=== PATIENT | female | born 1990 | race African-American/Black ===

== ENCOUNTER 2019-03-05 19:33 | Emergency (ER) | payer MEDICAID, OTHER ==
[2019-03-05] MEDS ORDERED: Ketorolac Tromethamine 30 MG/ML VIAL ONE (20:12)
== END 2019-03-05 20:30 | disposition home or self-care (01) ==
LOC: ERS 19:33
DX: M72.2 Plantar fascial fibromatosis (principal); F32.9 Major depressive disorder, single episode, unspecified
CPT/HCPCS: 96372; 99283; J1885

== ENCOUNTER 2023-07-12 11:27 | Emergency (ER) | payer OTHER ==
[2023-07-12] MEDS ORDERED: Dexamethasone 10 MG/ML VIAL ONE (11:48)
== END 2023-07-12 12:38 | disposition home or self-care (01) ==
LOC: ERS 11:27
DX: J06.9 Acute upper respiratory infection, unspecified (principal)
CPT/HCPCS: 71045; J1100

== ENCOUNTER 2023-09-10 20:01 | Emergency (ER) | payer OTHER, SELFPAY | END 2023-09-10 20:47 | disposition home or self-care (01) | LOC: ERS 20:01 | DX: H66.92 Otitis media, unspecified, left ear (principal); H73.92 Unspecified disorder of tympanic membrane, left ear | CPT/HCPCS: 99282 ==

== ENCOUNTER 2024-08-16 07:08 | Emergency (ER) | payer BC, SELFPAY ==
[2024-08-16] MEDS ORDERED: Ketorolac Tromethamine 30 MG (1 mL) VIAL ONE (07:23)
== END 2024-08-16 08:13 | disposition home or self-care (01) ==
LOC: ERS 07:08
DX: M72.2 Plantar fascial fibromatosis (principal)
CPT/HCPCS: 96372; 99283; J1885

== ENCOUNTER 2024-09-17 08:36 | Emergency (ER) | payer BC ==
[2024-09-17] MEDS ORDERED: Acetaminophen 500 MG TAB ONE (09:02)
[2024-09-17] MEDS ORDERED: Ketorolac Tromethamine 30 MG (1 mL) VIAL ONE (09:02)
== END 2024-09-17 09:17 | disposition home or self-care (01) ==
LOC: ERS 08:36
DX: M79.671 Pain in right foot (principal)
CPT/HCPCS: 96372; 99283; J1885

== ENCOUNTER 2024-10-08 20:04 | Emergency (ER) | payer BC | END 2024-10-08 20:52 | disposition home or self-care (01) | LOC: ERS 20:04 | DX: M79.671 Pain in right foot (principal) ==